=== PATIENT | female | born 1990 | race Hispanic/Latino ===

== ENCOUNTER 2020-11-14 10:00 | Outpatient (CLI) | payer BC | END 2020-11-14 10:01 | disposition home or self-care (01) | LOC: CSHULT 10:00 | PROVIDERS: ATTEND Student in an Organized Health Care Education/Training Program | DX: N63.0 Unspecified lump in unspecified breast (principal) ==

== ENCOUNTER 2021-05-20 09:04 | Outpatient (CLI) | payer BC | END 2021-05-20 09:05 | disposition home or self-care (01) | LOC: CSHULT 09:04 | PROVIDERS: ATTEND Student in an Organized Health Care Education/Training Program | DX: N63.15 Unspecified lump in the right breast, overlapping quadrants (principal); N64.89 Other specified disorders of breast ==

== ENCOUNTER 2021-11-18 08:58 | Outpatient (CLI) | payer BC | END 2021-11-18 08:59 | disposition home or self-care (01) | LOC: CSHULT 08:58 | PROVIDERS: ATTEND Family Medicine | DX: N63.10 Unspecified lump in the right breast, unspecified quadrant (principal) ==